=== PATIENT | female | born 1975 | race Two or more races ===

== ENCOUNTER 2017-02-08 12:54 | Emergency (ER) | payer OTHER ==
--- NOTE | 2017-02-08 13:49 | RAD ---
EXAMINATION:HAND-RIGHT 3 VIEWS Clinical indication: Crush injury to right hand. Swelling and bruising. Initial encounter. Technique:3 views of the right hand were obtained. Comparison: None FINDINGS: No acute displaced fracture of focal destruction is identified. There is slight irregularity of the proximal diaphysis of the right fifth metacarpal. This may reflect posttraumatic deformity. The joint space relationships are maintained. No soft tissue abnormality is identified. IMPRESSION: No acute displaced fracture is identified. There is an apparent posttraumatic deformity proximal right fifth metacarpal.
[2017-02-08] MEDS ORDERED: ACETAMINOPHEN 500 MG TABLET ONE (13:59)
== END 2017-02-08 14:11 | disposition home or self-care (01) ==
LOC: ED 12:54
DX: S60.221A Contusion of right hand, initial encounter (principal); W23.0XXA Caught, crushed, jammed, or pinched between moving objects, initial encounter; Y92.9 Unspecified place or not applicable
CPT/HCPCS: 73130; 99283 ×2; A9270